=== PATIENT | female | born 1955 | race Caucasian/White ===

== ENCOUNTER → 2017-11-03 | Outpatient (CLI) | payer OTHER ==
[~2017-11-03] MED LIST: ESTR0.62 PO; ESTR10TA4 VG; FLU IM; GABA-490 PO; HYDR-317 PO; PROP40TA45 PO; SULF1TAB24 PO; ZOLP-358 PO
== END ==
LOC: LAB 15:56
PROVIDERS: ATTEND Internal Medicine
DX: R79.89 Other specified abnormal findings of blood chemistry (principal)
CPT/HCPCS: 36415; 84443

== ENCOUNTER 2017-12-15 01:16 | Day surgery (SDC) | payer OTHER ==
[~2017-12-15] VITALS: Ht 160 cm; Wt 60.8 kg
[2017-12-15] MEDS ORDERED: PROPOFOL EMUL(*) 10MG/ML 20 ML 20 ML ONE ×2 (11:20→12:50)
[2017-12-15 11:54] VITALS: BP 120/85
[2017-12-15] MEDS ORDERED: LIDOCAINE/SOD BICARB 8.4% SYR ID ONE (12:30)
[2017-12-15] MEDS ORDERED: NORMOSOL R SOLN(*) 1000 ML BAG 1,000 ML IV PRN (12:30)
[2017-12-15 13:56] VITALS: BP 105/76
--- NOTE | 2017-12-15 13:57 | Short(Outpt) Discharge Summary ---
Discharge Summary Reason for Hosp/Final Diag: (1) Colon cancer screening Status: Chronic Hospital Course & Plan: Colonoscopy with polypectomy x1 completed without problems. Departure Discharge to: Home, Self Care Discharge Instructions Home Meds Active Scripts Zolpidem Tartrate (ZOLPIDEM TARTRATE) 10 Mg Tablet, 1 TAB PO HS Y for sleep, # 30 TAB 1 Refill Prov:LYNDSEY HARRELL MD 11/03/17 Reported Medications Estradiol (VAGIFEM) 10 Mcg Tablet, 1 TAB VG 3XW, TAB 0 Refills 11/03/17 Diet: Regular Activity: As Tolerated Special Instructions: Your colonoscopy was completed without problems and your prep was excellent (Good Job!!). I removed a small polyp from your rectum and it was sent to pathology. My office will call you in the next week or so and let you know what the polyp is and when your next colonoscopy should be (either 5 or 10 years depending on results). Copies to: LYNDSEY HARRELL MD, JOHN A MD Dec 15, 2017 13:57
[2017-12-15 14:17] VITALS: BP 109/88
[2017-12-15 14:18] VITALS: BP 135/96
== END 2017-12-15 14:25 | disposition home or self-care (01) ==
LOC: OR 01:16
PROVIDERS: ATTEND Surgery
DX: Z12.11 Encounter for screening for malignant neoplasm of colon (principal); K62.1 Rectal polyp
CPT/HCPCS: 00811; 45385; 88305; J2704

== ENCOUNTER → 2018-07-13 | Outpatient (CLI) | payer MEDICARE, OTHER ==
--- NOTE | 2018-07-13 17:08 | RADIOLOGY IMAGING REPORT ---
FACILITY: [facility] - [place] PATIENT NAME: LALO BROOKE : [id number] MR: [id number] V: [id number] EXAM DATE: [id number] ORDERING PHYSICIAN: LYNDSEY HARRELL TECHNOLOGIST: Shannon Murray PROCEDURE:BILATERAL DIGITAL SCREENING MAMMOGRAM WITH CAD ASSISTED INTERPRETATION & 3D TOMOSYNTHESIS COMPARISON:Prior mammograms 04/02/17, 03/24/16, 01/29/15, 11/28/13, 11/15/13, 10/13/11. INDICATIONS:SCREENING FINDINGS: The breasts are heterogeneously dense which can obscure small masses. There is a focal asymmetry in the upper portion of the Right breast on the Right MLO view posterior 1/3 for which Spot compression views are recommended. DIAGNOSTIC CATEGORY 0--INCOMPLETE: NEED ADDITIONAL IMAGING EVALUATION. RECOMMENDATIONS: ADDITIONAL MAMMOGRAPHIC VIEWS REQUIRED: RIGHT BREAST. IMPRESSION: BIRADS 0: Incomplete. Additional views of the Right breast recommended as described above. Dictated by: Veronica Ashby M.D. on 07/13/2018 at 10:07 Transcribed by: ROBYN on 07/13/2018 at 10:20 Approved by: Veronica Ashby M.D. on 07/13/2018 at 17:06 [facility]
== END ==
LOC: MAMO 01:03
PROVIDERS: ATTEND Internal Medicine
DX: Z12.31 Encounter for screening mammogram for malignant neoplasm of breast (principal); R92.8 Other abnormal and inconclusive findings on diagnostic imaging of breast
CPT/HCPCS: 77063; 77067

== ENCOUNTER → 2018-08-03 | Outpatient (CLI) | payer OTHER ==
--- NOTE | 2018-08-04 15:06 | RADIOLOGY IMAGING REPORT ---
FACILITY: [facility] - [place] PATIENT NAME: LALO BROOKE : [id number] MR: [id number] V: [id number] EXAM DATE: ORDERING PHYSICIAN: LYNDSEY HARRELL TECHNOLOGIST: Cynthia Cook PROCEDURE:RIGHT DIGITAL DIAGNOSTIC MAMMOGRAM WITH CAD ASSISTED INTERPRETATION & 3D TOMOSYNTHESIS COMPARISON:Prior mammograms dated 07/13/18, 06/02/16, 03/24/16, 01/29/15, 11/28/13, 11/15/13, 10/13/11 INDICATIONS:further eval FINDINGS: Patient returns for spot compression view in the posterior third upper portion Right breast in the Right MLO projection with 3D breast tomosynthesis. The focal asymmetry in the upper portion Right breast on the recent Right MLO view appeared compressible & apparently represents summation shadow. DIAGNOSTIC CATEGORY 2--BENIGN FINDING. RECOMMENDATIONS: ROUTINE MAMMOGRAM AND CLINICAL EVALUATION. IMPRESSION: BIRADS 2: Benign finding. No significant abnormality of the Right breast is seen. Dictated by: Veronica Ashby M.D. on 08/03/2018 at 16:02 Transcribed by: MIRA on 08/04/2018 at 14:36 Approved by: Veronica Ashby M.D. on 08/04/2018 at 15:05 [facility]
== END ==
LOC: MAMO 00:53
PROVIDERS: ATTEND Internal Medicine
DX: R92.8 Other abnormal and inconclusive findings on diagnostic imaging of breast (principal)
CPT/HCPCS: 77061; 77065

== ENCOUNTER → 2018-10-19 | Outpatient (CLI) | payer MEDICARE, OTHER ==
[~2018-10-19] MED LIST changes: +ATOR40TA24 PO
== END ==
LOC: LAB 09:59
PROVIDERS: ATTEND Emergency Medicine
DX: E78.5 Hyperlipidemia, unspecified (principal); R93.89 Abnormal findings on diagnostic imaging of other specified body structures; G62.9 Polyneuropathy, unspecified
CPT/HCPCS: 36415; 82465; 82607; 83718; 84443; 84478